=== PATIENT | female | born 1965 | race Two or more races ===

== ENCOUNTER 2024-11-03 15:00 | Emergency (ER) | payer MEDICAID, SELFPAY ==
[2024-11-03 15:01] VITALS: BP 151/93; PULSE 91; RESP 15; TEMP 36.6; O2SAT 100; BMI 26.9
--- NOTE | 2024-11-03 15:18 | EDS_ITS ---
HPI History of Present Illness Chief Complaint: Hypertension Informant: patient and family Narrative Narrative: Patient here with [id number] sent from urgent care for evaluation. Nontraumatic upper back pain for 2 days pain worse with movement. No pain down the arms no pain that radiates. History of diabetes diagnosed in [place] she is on metformin 5 mg 3 times daily. She is left ear for little over a year. Also reports intermittent blurry vision she does wear glasses for distance. No eye exam in the [place]. Denies headache. Denies nausea or vomiting. States she had outpatient blood work a few months ago. She is waiting to be established with PCP currently. They found her blood pressure to be 160s over 90s. No chest pains no shortness of breath. Reported blood pressure in [place] at least systolic 140s, doctors never started on medication. Prior similar symptoms: Yes PFSH PFSH Home Medications ?Medication ?Instructions ?Recorded ?Last Taken ?Type metformin 500 mg tablet 500 mg PO TID #90 tabs 11/03/24 Unknown Rx valsartan 80 mg tablet 80 mg PO DAILY #30 tabs 11/03/24 Unknown Rx Allergy/AdvReac Type Severity Reaction Status Date / Time No Known Allergies Allergy Verified 11/03/24 15:01 Social History Smoking Status: Never smoker ROS ROS ED Constitutional Constitutional ED: Denies chills, fever(s) or sweats Eyes Eyes: Reports blurry vision ENT ENT ED: Denies sore throat Cardiovascular Cardiovascular: Denies chest pain, leg edema, palpitations or racing heartbeat Respiratory/Chest Respiratory/Chest: Denies cough, dyspnea or dyspnea on exertion Gastrointestinal Gastrointestinal: Denies abdominal pain, diarrhea, nausea or vomiting Genitourinary Genitourinary ED: Denies dysuria, hematuria or urinary frequency Musculoskeletal Musculoskeletal: Reports back pain; Denies extremity pain or neck pain Integumentary Denies rash or wounds Neurologic Neurologic: Denies headache(s), paresthesias or weakness EXAM Physical Exam Const Vital Signs: 11/03/24 15:01 11/03/24 16:12 11/03/24 16:17 Temperature 97.8 F Temperature Source Oral Pulse Rate 91 Respiratory Rate 15 Respiratory Effort Normal Respiratory Pattern Normal Blood Pressure 151/93 H 136/81 H Blood Pressure Mean 112 99 Pulse Ox 100 Oxygen Delivery Method Room Air Positive well nourished and well developed General Appearance ED: well developed and NAD HEENT Reports moist mucous membranes normocephalic and atraumatic Eyes General Eye ED: Yes normal appearance of both eyes Neck full ROM Chest Wall Chest: Negative for tenderness Resp normal respiratory effort and normal air movement Effort and Inspection: symmetric chest movement; Negative for respiratory distress Cardio regular rate, regular rhythm and no murmurs Peripheral Pulses: pulses 2+ throughout GI normal to inspection, nondistended, normoactive bowel sounds and non-tender Palpation: Negative for guarding or rebound tenderness present Back/Spine Back/Spine Narrative: No midline tenderness however somatic function upper thoracic left side T4-T5 rotated side bent to the left. This was reproducible. Extremity normal to inspection General Extremety ED: Negative for edema or tenderness General Extremity: Negative for edema Neuro oriented x3, CN's II-XII intact bilaterally and no sensory deficits noted Sensorium / Orientation: awake and alert Skin no rashes or lesions noted and no wounds MDM MDM MDM Narrative Medical decision making narrative: Interventions / MDM: Differential diagnosis: Elevated blood pressure, blurry vision, history of hypertension, thoracic back strain. Diagnosis considered but do not suspect: No clinical hypertensive emergency symptoms. My EKG interpretation: N/A Imaging independently reviewed and interpreted by myself: N/A External documents reviewed: N/A Test considered but not ordered:N/A ED course: Patient blood pressure on arrival 151/93. Elevated however not emergently for any concerns of symptoms. Intermittent blurry vision with history of diabetes. She wears glasses. Denies loss of vision. She has some eye dysfunction thoracic spine reproducible, osteopathic manipulation performed in the room after verbal consent with improvement of symptoms. She has not had any recent blood work that I can see, therefore basic labs thyroid screening. With her elevated blood pressure discussed darting low-dose blood pressure medicines upon discharge with checking of her blood pressure at home for PCP follow-up they agree with this plan. Procedure note: Osteopathic manipulation. Verbal consent. Patient standing bedside, thoracic spine isolated, HVLA performed with no difficulties improvement of movement and pain. Patient tolerated the procedure well. 1750: Labs all stable glucose 193 normal gap. Remain symptom-free with her back. Blood pressure is trending down in the room systolic 117/70. She still wanted to have blood pressure medicine just in case it goes up. Discussed holding the medicine if blood pressure remains similar to this. She will keep a log of her blood pressure morning at night she will keep her primary care appointment. I refilled her metformin 500 mg 3 times daily. Valsartan 80 mg sent to her pharmacy for blood pressure if needed. She is also [facility] to blurry vision with diabetes history. Visual acuity 20/25 OS, 20/30 OD. Re-evaluation: stable Disposition discussed with patient/family/significant other: Patient and [id number] Case discussed with consulting clinician: N/A This note was generated with [employer] software. It may contain incorrect words, spelling, and punctuation that were not noted in checking the note before signing. Lab Data Attestation: I reviewed the patient's lab results. Labs: Laboratory Results - last 24 hr 11/03/24 16:00 WBC 5.3 RBC 5.48 H Hgb 13.5 Hct 42.4 MCV 77.4 L MCH 24.6 L MCHC 31.8 L RDW Std Deviation 36.1 RDW Coeff of Lars 12.9 Plt Count 229 MPV 11.1 Immature Gran % (Auto) 0.400 Neut % (Auto) 53.3 Lymph % (Auto) 36.9 [place] % (Auto) 6.5 Eos % (Auto) 1.9 Baso % (Auto) 1.0 Absolute Neuts (auto) 2.8 Absolute Lymphs (auto) 1.94 Nucleated RBC % 0 Sodium 138 Potassium 3.5 Chloride 104 Carbon Dioxide 31.0 Anion Gap 4 L BUN 12 Creatinine 0.66 Estim Creat Clear Calc 74.52 Est GFR (MDRD) Af Amer 119 Est GFR (MDRD) Non-Af 98 BUN/Creatinine Ratio 18.3 Glucose 193 H Calcium 9.1 TSH 0.975 Discharge Plan Triage Chief Complaint: Hypertension ED Provider: Joce Carrillo Dx/Rx/DC Orders Clinical Impression: Back pain, thoracic, History of diabetes mellitus, Blurred vision, bilateral Instructions: Relieving Back Pain, ED Blurred Vision, ED Hypertension, To Be Confirmed Prescriptions: New metformin 500 mg tablet 500 mg PO TID Qty: 90 0RF valsartan 80 mg tablet 80 mg PO DAILY Qty: 30 0RF Primary Care Provider: Care Physician,No Primary Referrals: Tammie Villalobos MD [Med Staff - Active Staff] - 3-5 Days Care Physician,No Primary [Primary Care Provider] - Activity Restrictions/Additional Instructions: Hemoglobin 13.5. Creatinine 0.66. Glucose 193 in the lab. TSH normal at 0.975. Blood pressure trending down in the emergency department. He requested blood pressure medicine this is sent to your pharmacy. Keep a log of blood pressure in the morning when you wake up and then before you go to sleep. Follow-up with your primary care team reevaluation continuing medication or adjustment. Your metformin was refilled. [facility] for [facility] exam with blurred vision and your diabetes. [place] 20/25 OS 20/30 OD with your glasses Print Language: [place] Disposition Disposition: Home, Self Care
[2024-11-03 16:08] LABS: Absolute Lymphocyte Count 1.94 X10^3/uL (0.83-4.51); Absolute Neutrophil Count 2.8 X10^3/uL (2.0-7.7); Basophil# 0.05 X10^3/uL; Eosinophils% 1.9 % (0-5); Hematocrit 42.4 % (37-47); Hemoglobin 13.5 g/dL (12.0-15.0); Lymphocyte # 1.94 X10^3/ul (0.83-4.51); Lymphocyte % 36.9 % (19-41); Mean Corp Hgb Conc 31.8 g/dL (32-36); Mean Corpuscular Hgb 24.6 pg (27.0-32.0); Mean Corpuscular Volume 77.4 fL (81-99); Mean Platelet Vol. 11.1 fl (6.2-12.0); Monocyte# 0.34 X10^3/uL; Monocyte% 6.5 % (0-10); NRBC Flagged by Analyzer 0 % (0-5); Neutrophil # 2.81 X10^3/uL (2.7-7.7); Neutrophil % 53.3 % (47-70); Platelet Count 229 K/mm3 (150-450); RBC Distribution Width CV 12.9 % (11.6-14.6); RBC Distribution Width SD 36.1 fl (35.1-43.9); Red Blood Count 5.48 M/mm3 (4.2-5.4); White Blood Count 5.3 K/mm3 (4.4-11.0)
[2024-11-03 16:17] VITALS: BP 136/81
[2024-11-03 16:33] LABS: Anion Gap 4 (5-15); BUN 12 mg/dL (7-18); BUN/Creat Ratio 18.3 RATIO (10-20); Calcium,Total 9.1 mg/dL (8.5-10.1); Chloride 104 mmol/L (98-107); Creatinine, Serum 0.66 mg/dL (0.55-1.02); EST Glomerular Filtration Rate 98 mL/min (>60); Est Glom Filt Rate - Afr Amer 119 mL/min (>60); Estimated Creatinine Clearance 74.52 ml/min; Glucose 193 mg/dL (74-106); Potassium 3.5 mmol/L (3.5-5.1); Sodium Level 138 mmol/L (136-145); Thyroid Stim Hormone (TSH) 0.975 uIU/mL (0.358-3.740)
[2024-11-03 17:03] VITALS: BP 117/86; PULSE 77; RESP 18; TEMP 36.6; O2SAT 99
== END 2024-11-03 17:08 | disposition home or self-care (01) ==
PROVIDERS: Emergency Provider Emergency Medicine; Visit Provider Emergency Medicine
DX: M54.6 Pain in thoracic spine (principal); E11.9 Type 2 diabetes mellitus without complications; H53.8 Other visual disturbances; I10 Essential (primary) hypertension; Z79.84 Long term (current) use of oral hypoglycemic drugs; Z79.899 Other long term (current) drug therapy
CPT/HCPCS: 80048; 84443; 85025; 99283